=== PATIENT | male | born 1955 | race Caucasian/White ===

== ENCOUNTER → 2017-09-16 | Outpatient (CLI) | payer OTHER ==
[~2017-09-16] MED LIST: ALBU1.25 NEB; ALBU8.5H8 INH; AMLO2.5T PO; BUDE10.2 INH; CLOB15OI TD; HYDR10TA4 PO; IPRA0.2S35 INH; LOSA100T6 PO; MULT-717 PO; PRAV20TA2 PO
[2017-09-16 15:29] LABS: HEMATOCRIT 42.7 % (39.2-51.8); HEMOGLOBIN 14.5 g/dL (13.7-18.0); WHITE BLOOD COUNT 8.9 x10^3/uL (3.4-10)
[2017-09-16 15:40] LABS: BLOOD UREA NITROGEN 16 mg/dL (7-18)
[2017-09-16 15:44] LABS: ASPARTATE AMINO TRANSFERASE 11 U/L (15-37)
== END | disposition home or self-care (01) ==
LOC: STAR 13:54
PROVIDERS: ATTEND Neurological Surgery
DX: Z01.818 Encounter for other preprocedural examination (principal); M51.36 Other intervertebral disc degeneration, lumbar region; R79.1 Abnormal coagulation profile
CPT/HCPCS: 36415; 80053; 81003; 85025; 85610; 85730; 93005

== ENCOUNTER 2017-09-22 06:04 | Inpatient (IN) | payer OTHER ==
[~2017-09-22] VITALS: Ht 182.9 cm; Wt 104.4 kg
[~2017-09-22 06:04] MED LIST changes: +BACITRACIN 50,000 UNIT ONE; +BUPIVACAINE/PF 0.5% ONE; +THROMBIN 5,000 UNIT VIAL TP ONE
[2017-09-22] MEDS ORDERED: BUPIVACAINE 0.25% ONE (06:05)
[2017-09-22 06:25] VITALS: BP 154/94
[2017-09-22] MEDS ORDERED: LIDOCAINE/PF 1%, 30ML ONE (07:11)
[2017-09-22] MEDS ORDERED: CEFAZOLIN 1,000 MG ONE (07:15)
[2017-09-22] MEDS ORDERED: PROPOFOL 10 MG/ML, 100ML IV ONE (07:15)
[2017-09-22] MEDS ORDERED: ROCURONIUM 10 MG/ML,10ML ONE (07:15)
[2017-09-22] MEDS ORDERED: PROPOFOL 10 MG/ML, 20ML ONE (07:15)
[2017-09-22] MEDS ORDERED: HYDROmorphone 1 MG/ML, 1ML ONE (07:15)
[2017-09-22] MEDS ORDERED: EPHEDRINE 50 MG/ML, 1ML ONE (07:15)
[2017-09-22] MEDS ORDERED: KETAMINE 10 MG/ML, 20ML ONE (07:15)
[2017-09-22] MEDS ORDERED: FENTANYL PF 250 MCG/5ML ONE (07:19)
[2017-09-22] MEDS ORDERED: MIDAZOLAM 1 MG/ML, 2ML ONE ×2 (07:19→10:55)
[2017-09-22] MEDS ORDERED: LACTATED RINGERS 1,000 ML IV SCH (08:45)
[2017-09-22] MEDS ORDERED: LIDOCAINE 1%, 2ML SQ PRN (09:00)
[2017-09-22] MEDS ORDERED: LABETALOL 5MG/ML, 20ML IV PRN (09:30)
[2017-09-22] MEDS ORDERED: EPHEDRINE 50 MG/ML, 1ML IVPush PRN (09:30)
[2017-09-22] MEDS ORDERED: METOCLOPRAMIDE 5 MG/ML, 2ML IV PRN (09:30)
[2017-09-22] MEDS ORDERED: MIDAZOLAM 1 MG/ML, 2ML IV PRN (09:30)
[2017-09-22] MEDS ORDERED: ALBUTEROL SULFATE 2.5 MG/3 ML NPPB PRN (09:30)
[2017-09-22] MEDS ORDERED: MEPERIDINE/PF 25MG/0.5ML IVPush PRN (09:30)
[2017-09-22] MEDS ORDERED: ONDANSETRON 2MG/ML, 2ML IVPush PRN ×2 (09:30→11:00)
[2017-09-22] MEDS ORDERED: OXYcodone 5 MG/5 ML ORAL.SOL UDC PO PRN (09:30)
[2017-09-22] MEDS ORDERED: hydrALAzine 20 MG/ML, 1ML IV PRN (09:30)
[2017-09-22] MEDS ORDERED: VANCOMYCIN 1,000 MG IM ONE ×2 (10:00)
[2017-09-22] MEDS ORDERED: VANCOMYCIN 1,000 MG ONE (10:20)
[2017-09-22] MEDS ORDERED: ACETAMINOPHEN 650 MG/20.3 ML UDC ONE (10:51)
[2017-09-22] MEDS ORDERED: FENTANYL PF 100 MCG/2ML ONE (10:52)
[2017-09-22] MEDS ORDERED: OXYcodone 5 MG/5 ML ORAL.SOL UDC ONE (10:52)
[2017-09-22] MEDS ORDERED: HYDROmorphone 2 MG/ML, 1ML ONE ×3 (10:52→17:28)
[2017-09-22] MEDS: FENTANYL PF 100 MCG/2ML IV PRN ×2 (10:54→11:03)
[2017-09-22] MEDS ORDERED: DIPHENHYDRAMINE 50 MG/ML, 1ML IVPush PRN (11:00)
[2017-09-22] MEDS ORDERED: ALBUTEROL HFA 90 MCG/SPRAY INH PRN (11:00)
[2017-09-22] MEDS ORDERED: MAGNESIUM HYDROXIDE 8%, 30ML UDC PO PRN (11:00)
[2017-09-22] MEDS ORDERED: IPRATROPIUM 0.5 MG/2.5 ML INHA INLINE PRN (11:00)
[2017-09-22] MEDS ORDERED: ALBUTEROL SULFATE 2.5 MG/3 ML NEB PRN (11:00)
[2017-09-22] MEDS ORDERED: HYDROcodone/APAP 5/325 TABLET PO PRN (11:00)
[2017-09-22] MEDS ORDERED: PHARMACY MAY ADJ FOR RENAL FX MC PRN (11:00)
[2017-09-22] MEDS ORDERED: PROMETHAZINE 25 MG/ML, 1ML IM PRN (11:00)
[2017-09-22] MEDS ORDERED: BISACODYL 10 MG SUPP PR PRN (11:00)
[2017-09-22] MEDS ORDERED: SENNA/DOCUSATE TABLET PO PRN (11:00)
[2017-09-22] MEDS ORDERED: DIPHENHYDRAMINE 50 MG/ML, 1ML IM PRN (11:00)
[2017-09-22] MEDS: HYDROmorphone 1 MG/ML, 1ML IV PRN ×3 (11:15→11:35)
[2017-09-22] MEDS ORDERED: METHOCARBAMOL 750 MG TABLET ONE (11:23)
[2017-09-22] MEDS: METHOCARBAMOL 750 MG TABLET PO PRN ×2 (11:25→20:50)
[2017-09-22] MEDS ORDERED: ACETAMINOPHEN 650 MG/20.3 ML UDC PO PRN (11:30)
[2017-09-22] MEDS: HYDROmorphone 1 MG/ML, 1ML IVPush PRN ×2 (13:18→13:54)
[2017-09-22 14:00] VITALS: BP 143/91
[2017-09-22] MEDS: OXYcodone/APAP 5/325MG TABLET PO PRN ×2 (16:03→20:50)
[2017-09-22] MEDS: CEFAZOLIN PMX 1GM/50ML 50 ML IVPB SCH ×2 (16:04→23:33)
[2017-09-22 19:45] VITALS: BP 149/105
[2017-09-22] MEDS: Budesonide/Formoterol Fumarate (Symbicort 160-4.5 Mcg Inhaler) INH SCH ×2 (20:51)
[2017-09-22] MEDS: hydrOXyzine 10MG TABLET PO SCH (20:51)
[2017-09-22] MEDS: AMLODIPINE 2.5 MG TABLET PO SCH (20:51)
[2017-09-22] MEDS: SODIUM CHLORIDE FLUSH 10ML SYR IVF SCH (20:51)
[2017-09-22] MEDS: PRAVASTATIN 20 MG TABLET PO SCH (20:52)
[2017-09-22] MEDS: LOSARTAN 50MG TABLET PO SCH (20:52)
[2017-09-22] MEDS: NS + 20MEQ KCL 1,000 ML IV SCH (23:33)
[2017-09-22 23:40] VITALS: BP 151/96
[2017-09-23] MEDS: OXYcodone/APAP 5/325MG TABLET PO PRN ×6 (01:02→22:59)
[2017-09-23 04:56] VITALS: BP 143/97
[2017-09-23] MEDS: METHOCARBAMOL 750 MG TABLET PO PRN ×4 (04:58→23:42)
[2017-09-23 06:07] LABS: HEMATOCRIT 36.4 % (39.2-51.8); HEMOGLOBIN 12.5 g/dL (13.7-18.0); WHITE BLOOD COUNT 7.1 x10^3/uL (3.4-10)
[2017-09-23 06:08] LABS: BLOOD UREA NITROGEN 8 mg/dL (7-18)
[2017-09-23 07:36] VITALS: BP 92/60
[2017-09-23] MEDS: NS + 20MEQ KCL 1,000 ML IV SCH ×2 (08:00→16:14)
[2017-09-23] MEDS: Budesonide/Formoterol Fumarate (Symbicort 160-4.5 Mcg Inhaler) INH SCH ×4 (08:15→20:30)
[2017-09-23] MEDS: SODIUM CHLORIDE FLUSH 10ML SYR IVF SCH ×2 (08:16→20:27)
[2017-09-23] MEDS: ENOXAPARIN 30 MG/0.3 ML SQ SCH ×2 (08:16→20:27)
[2017-09-23] MEDS: METOCLOPRAMIDE 5 MG/ML, 2ML IV SCH ×3 (08:20→23:43)
[2017-09-23] MEDS: POLYETHYLENE GLYCOL 17 GM PACKET PO SCH (08:20)
[2017-09-23 16:54] VITALS: BP 124/79
[2017-09-23 19:50] VITALS: BP 133/87
[2017-09-23] MEDS: AMLODIPINE 2.5 MG TABLET PO SCH (20:27)
[2017-09-23] MEDS: hydrOXyzine 10MG TABLET PO SCH (20:28)
[2017-09-23] MEDS: LOSARTAN 50MG TABLET PO SCH (20:28)
[2017-09-23] MEDS: PRAVASTATIN 20 MG TABLET PO SCH (20:31)
[2017-09-24 01:26] VITALS: BP 139/88
[2017-09-24] MEDS: NS + 20MEQ KCL 1,000 ML IV SCH ×2 (03:41→11:28)
[2017-09-24] MEDS: OXYcodone/APAP 5/325MG TABLET PO PRN ×2 (04:41→11:28)
[2017-09-24 05:40] LABS: HEMATOCRIT 38.5 % (39.2-51.8); WHITE BLOOD COUNT 10.9 x10^3/uL (3.4-10)
[2017-09-24 05:45] LABS: BLOOD UREA NITROGEN 9 mg/dL (7-18)
[2017-09-24 06:35] VITALS: BP 147/91
[2017-09-24] MEDS: Budesonide/Formoterol Fumarate (Symbicort 160-4.5 Mcg Inhaler) INH SCH ×2 (07:31)
[2017-09-24] MEDS: POLYETHYLENE GLYCOL 17 GM PACKET PO SCH (07:31)
[2017-09-24] MEDS: ENOXAPARIN 30 MG/0.3 ML SQ SCH (07:31)
[2017-09-24] MEDS: METHOCARBAMOL 750 MG TABLET PO PRN (07:31)
[2017-09-24] MEDS: SODIUM CHLORIDE FLUSH 10ML SYR IVF SCH (07:33)
[2017-09-24] MEDS ORDERED: METH750T87 PO (11:44)
[2017-09-24] MEDS ORDERED: OXYC-302 PO (11:44)
== END 2017-09-24 14:07 | disposition home or self-care (01) | DRG 460 ==
LOC: ORIP 06:04 → 4NOR 12:30 → DCLOUNGE 09-24 13:53
PROVIDERS: ADMIT Neurological Surgery; ATTEND Neurological Surgery
PROC: 0SG30A0 Fusion of Lumbosacral Joint with Interbody Fusion Device, Anterior Approach, Anterior Column, Open Approach (ICD-10-PCS; 2017-09-22)
PROC: 4A11X4G Monitoring of Peripheral Nervous Electrical Activity, Intraoperative, External Approach (ICD-10-PCS; 2017-09-22)
PROC: 0ST40ZZ Resection of Lumbosacral Disc, Open Approach (ICD-10-PCS; principal; 2017-09-22 07:00)
DX: M51.17 Intervertebral disc disorders with radiculopathy, lumbosacral region (principal); E66.9 Obesity, unspecified; M47.27 Other spondylosis with radiculopathy, lumbosacral region; M43.16 Spondylolisthesis, lumbar region; G89.29 Other chronic pain; J45.909 Unspecified asthma, uncomplicated; F32.9 Major depressive disorder, single episode, unspecified; I10 Essential (primary) hypertension; M54.5 Low back pain; Z68.38 Body mass index [BMI] 38.0-38.9, adult
CPT/HCPCS: 36415; 72100; 74000; 80048; 82962; 85025; C1713; J0690; J1170; J1650; J2250; J2704; J2710; J3010; J3370; J3480; J3490; C1762; J2765; J7120

== ENCOUNTER → 2018-12-22 | Outpatient (CLI) | payer OTHER ==
[~2018-12-22] MED LIST changes: -AMLO2.5T PO; +AMLO2.5T5 PO; -BACITRACIN 50,000 UNIT ONE; -BUPIVACAINE/PF 0.5% ONE; +LOSA100T14 PO; -LOSA100T6 PO; +METH750T87 PO; +OXYC-302 PO; -THROMBIN 5,000 UNIT VIAL TP ONE
== END | disposition home or self-care (01) ==
LOC: CARD 12:38
PROVIDERS: ATTEND Internal Medicine
DX: F43.25 Adjustment disorder with mixed disturbance of emotions and conduct (principal); F43.22 Adjustment disorder with anxiety; G47.00 Insomnia, unspecified; G31.84 Mild cognitive impairment of uncertain or unknown etiology; I10 Essential (primary) hypertension; E11.9 Type 2 diabetes mellitus without complications; E78.2 Mixed hyperlipidemia; F45.42 Pain disorder with related psychological factors; Z87.891 Personal history of nicotine dependence; Z79.899 Other long term (current) drug therapy
CPT/HCPCS: 95819